=== PATIENT | female | born 1940 | race Caucasian/White ===

== ENCOUNTER → 2020-05-18 | Outpatient (CLI) | payer MEDICARE ==
--- NOTE | 2020-05-18 18:05 | CARD ---
MR#: [id number] Date of Study: 05/18/2020 Ordering Physician: AC RIVERA, Referring Physician: AC RIVERA, Tech: Isabella Georges [facility] APPROVED REPORT EXAM: Two-dimensional and M-mode echocardiogram with Doppler and color Doppler. Other Information Quality : Technically LimitedHR: 74bpm Rhythm : Atrial FibrillationTechnically limited study due to body habitus, arrythmias INDICATION Dyspnea Atrial Fibrillation RISK FACTORS Hypertension Hyperlipidemia 2D DIMENSIONS RVDd3.0 (2.9-3.5cm)Left Atrium(2D)4.4 (1.6-4.0cm) IVSd0.9 (0.7-1.1cm)Aortic Root(2D)3.2 (2.0-3.7cm) LVDd5.3 (3.9-5.9cm)LVOT Diameter2.1 (1.8-2.4cm) PWd1.0 (0.7-1.1cm)LVDs3.4 (2.5-4.0cm) FS (%) 35.5 %SV86.8 ml LVEF(%)64.5 (>50%) Aortic Valve AoV Peak Simon.129.8cm/sAoV VTI31.5cm AO Peak GR.6.7mmHgLVOT Peak Simon.111.0cm/s LVOT VTI 29.69cmAO Mean GR.4mmHg CHRISTIANO (VMAX)2.12zh3ATR (VTI)3.15cm2 AI P 1/2 [id number] Pulmonary Valve PV Peak Tdqwhknf82.0cm/sPV Peak Grad.2mmHg Tricuspid Valve TR P. [id number]/sTR Peak Gr.34mmHg LEFT VENTRICLE The left ventricle is normal size. There is normal left ventricular wall thickness. The left ventricu lar systolic function is normal and the ejection fraction is within normal range. Estimated ejection fraction 55-60%. There is normal LV segmental wall motion. Tissue Doppler imaging reveals moderate le ft ventricular diastolic dysfunction. RIGHT VENTRICLE The right ventricle is normal size. There is normal right ventricular wall thickness. The right ventr icular systolic function is normal. ATRIA The left atrium is borderline dilated. The right atrium is moderately dilated. The interatrial septum is intact with no evidence for an atrial septal defect or patent foramen ovale as noted on 2-D or Do ppler imaging. AORTIC VALVE The aortic valve is normal in structure and function. Doppler and Color Flow revealed moderate aortic regurgitation. There is no significant aortic valvular stenosis. MITRAL VALVE The mitral valve is normal in structure and function. 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 There is no mitral valve stenosis. Doppler and Color-flow revealed m ild to moderate mitral regurgitation. TRICUSPID VALVE The tricuspid valve is normal in structure and function. Doppler and Color Flow revealed mild tricusp id regurgitation. Estimated PAP 35 mmHg. There is no tricuspid valve stenosis. PULMONIC VALVE The pulmonary valve is normal in structure and function. Doppler and Color Flow revealed mild pulmoni c valvular regurgitation. There is no pulmonic valvular stenosis. GREAT VESSELS The aortic root is normal in size. The IVC is normal in size and collapses >50% with inspiration. PERICARDIAL EFFUSION There is no evidence of significant pericardial effusion. Critical Notification Critical Value: No <Conclusion> The left ventricular systolic function is normal and the ejection fraction is within normal range. E stimated ejection fraction 55-60%. There is normal LV segmental wall motion. Doppler and Color Flow revealed moderate aortic regurgitation. Doppler and Color-flow revealed mild to moderate mitral regurgitation. Doppler and Color Flow revealed mild tricuspid regurgitation. Estimated PAP 35 mmHg. Signed by : Eduard Mcdowell, Electronically Approved : 05/18/2020 18:04:54
== END ==
LOC: ECHO 12:56
PROVIDERS: ATTEND Internal Medicine Cardiovascular Disease
DX: I08.8 Other rheumatic multiple valve diseases (principal); I25.10 Atherosclerotic heart disease of native coronary artery without angina pectoris; I65.29 Occlusion and stenosis of unspecified carotid artery
CPT/HCPCS: 93306

== ENCOUNTER → 2020-05-23 | Outpatient (CLI) | payer MEDICARE ==
--- NOTE | 2020-05-24 11:15 | RAD ---
MR#: [id number] Date of Study: 05/23/2020 Ordering Physician: AC RIVERA, Referring Physician: AC RIVERA, Tech: Harley Chase MBA, RDMS, RVT, RDCS, RTR APPROVED REPORT Patient Location: OUT-PATIENT Laterality:Bilateral Indications STENOSIS Doppler Spectral Velocity Analysis Right Left pCCA 89/16 cm/spCCA 78/14 cm/s mCCA 67/13 cm/smCCA 82/15 cm/s dCCA 86/17 cm/sdCCA 58/14 cm/s Bulb 48/13 cm/sBulb 51/13 cm/s ECA 77/ cm/sECA 93/ cm/s pICA 59/19 cm/spICA 90/21 cm/s Marlin 76/24 cm/smICA 89/25 cm/s dICA 57/16 cm/sdICA 80/26 cm/s Vert. 52/ cm/sVert. 58/ cm/s Subcl. 143/ cm/sSubcl. 83/ cm/s ICA/CCA 0.85ICA/CCA 1.15 Findings Grayscale images of the bilateral common carotid arteries demonstrates moderate diffuse intimal hyper plasia and mild diffuse plaque. Spectral waveforms and color Doppler are overall consistent with 0 to less than 50% stenosis in the b ilateral common, internal and external carotid vessels. Normal antegrade vertebral velocities noted with normal ICA to CCA ratios bilaterally. Critical Notification Critical Value: No <Conclusion> 1. No significant carotid occlusive disease bilaterally Signed by : Eduard Mcdowell, Electronically Approved : 05/24/2020 11:14:28
== END ==
LOC: US 15:45
PROVIDERS: ATTEND Internal Medicine Cardiovascular Disease
DX: I65.23 Occlusion and stenosis of bilateral carotid arteries (principal); I77.9 Disorder of arteries and arterioles, unspecified
CPT/HCPCS: 93880